=== PATIENT | female | born 1980 | race African-American/Black ===

== ENCOUNTER 2016-07-24 08:38 | Inpatient (IN) | payer MEDICAID ==
--- OUTSIDE RECORDS SUMMARY | 2016-07-24 08:42 | XMS REPORT | Continuity of Care Document ---
:1980 Author Organization [facility] ([facility]) Address [address] [place] [address] Phone [phone] Care Team Providers Name Role Phone Unavailable Primary Care Provider Unavailable Source Comments This disclosure is being made pursuant to the Care Everywhere program, applicable federal and state laws, and may not contain all informaitonavailable regarding this patient.[facility] ([facility]) Active Allergies and Adverse Reactions No Active Allergies Current Medications Not on file Active Problems Not on file Social History Tobacco Use Types Packs/Day Years Used Date Never Assessed Plan of Care Health Maintenance Due Date Last Done Comments Hepatitis B Vaccine (1 of 3 - Primary Series) 1982 Tdap Vaccine 1993 Lipid Disorder Screening 2000 MMR Vaccine 2000 Td Vaccine 2000 Varicella Vaccine (1 of 2 - Adult - No Evidence of 2000 Immunity) Cervical Cancer Screening 2012 Influenza Vaccine: Seasonal (#1) 10/24/2015 Results from Last 3 Months Not on file
[2016-07-24] MEDS ORDERED: ONDANSETRON HCL/PF 2 MG/ML VIAL IV PRN (08:55)
[2016-07-24] MEDS ORDERED: PENICILLIN G POTASSIUM 5 MILLIONUNT in DEXTROSE 5 % IN WATER 100 ML IV ONE ×2 (08:55)
[2016-07-24] MEDS ORDERED: LIDOCAINE HCL 50 ML VIAL PERI PRN (08:55)
[2016-07-24] MEDS ORDERED: OXYTOCIN/DEXTROSE 5%-WATER 30 UNITS/500 ML BAG IV ONE (08:55)
[2016-07-24 09:29] LABS: Hematocrit 28.2 % (37.0-47.0); Hemoglobin 8.8 gm/dL (12.5-16.0); Mean Cell Volume 75.8 fl (78-100); Mean Corpuscular Hemoglobin 23.7 pg (27-31); Mean Corpuscular Hgb Conc 31.2 g/dl (32-36); Mean Platelet Volume 11.1 fl (6.0-9.5); Neutrophil # 8.4 K/mm3 (1.3-6.0); Neutrophil % 71.2 % (42-75.0); Platelet Count 241 K/mm3 (150-450); Red Blood Count 3.72 M/mm3 (4.2-5.4); Red Cell Distribution Width 16.3 % (11.5-14.0); White Blood Count 11.8 K/mm3 (4.0-10.5)
[2016-07-24] MEDS: RINGERS SOLUTION,LACTATED 1,000 ML IV PRN ×3 (09:35→20:00)
[2016-07-24 09:37] LABS: Cocaine Ur Negative (NEGATIVE); Urine Barbiturate Negative (NEGATIVE); Urine Benzodiazepines Negative (NEGATIVE); Urine Opiates Negative (NEGATIVE); Urine PCP Negative (NEGATIVE); Urine THC Negative (NEGATIVE)
--- NOTE | 2016-07-24 11:09 | PN ---
Subjective - Date and Time Seen Date: 07/24/16 Subjective Narrative: Labor note 36 yo, at 38.1 weeks, induced for worsening psychiatric symptoms. GBS positive on PCN. Cervix: 2 cm, 90%, -3, soft and posterior. pitocin started for induction, currently at 6 mu/min Attempted to place a Alarcon bulb to aid with pitocin induction. Alarcon was unable to pass the cervix all the way up and was removed. FHR: reasuring. Conger: irregular contractions. Plan: will increase pitocin as tolerated. psych consult placed. may have epidural if desired. Luly Le MD Objective - Vitals Vitals: Last Vital Signs Temp 36.4 C L 08/31/13 12:10 Pulse Resp BP 113/62 08/31/13 12:10 Pulse Ox - Abnormal Lab Findings Abnormal Lab Findings: Abnormal Lab Results 07/24/16 Range/Units 09:19 WBC 11.8 H (4.0-10.5) K/mm3 RBC 3.72 L (4.2-5.4) M/mm3 Hgb 8.8 L (12.5-16.0) gm/dL Hct 28.2 L (37.0-47.0) % MCV 75.8 L (78-100) fl MCH 23.7 L (27-31) pg MCHC 31.2 L (32-36) g/dl RDW 16.3 H (11.5-14.0) % MPV 11.1 H (6.0-9.5) fl Immature Gran % (Auto) 1.80 H (0.001-0.429) % Immature Gran # (Auto) 0.21 H (0.000-0.0310) K/mm3 Lymphocytes % 15.5 L (20-51) % Monocytes % 10.7 H (0.0-9) % Neutrophils # 8.4 H (1.3-6.0) K/mm3 Monocytes # 1.3 H (0.0-1.0) k/mm3
[2016-07-24] MEDS: PENICILLIN G POTASSIUM 2.5 MILLIONUNT in DEXTROSE 5 % IN WATER 100 ML IV SCH ×6 (13:18→20:59)
[2016-07-24] MEDS ORDERED: BUPIVACAINE HCL/0.9 % NACL/PF 250 ML EP PRN (19:32)
--- NOTE | 2016-07-24 19:36 | OR ---
Anesthesia Pre Procedure Eval Date of Service: 07/24/16 Pre Procedure Evaluation: Last Vital Signs Temp 36.4 C L 08/31/13 12:10 Pulse Resp BP 113/62 08/31/13 12:10 Pulse Ox Anesthesia Pre Procedure Evaluation Heart Rate:68 Blood Pressure:117/69 Termperature:36.9 Respiratory Rate:18 SaO2:99 DATE: 07/24/2016 TIME: 1830 INDICATIONS: Active labor, labor pain PAST MEDICAL HISTORY: Altered per patient in active labor requesting labor analgesia. She is currently a 3-4 cm dilatation. EXAM: Heart regular; lungs clear ASSESSMENT OF MEDICAL STATUS: Appropriate candidate for labor analgesia PLANNED PROCEDURE: Combination spinal epidural for labor analgesia Home Medications: HOME MEDICATIONS Ferrous Sulfate [Iron] 325 mg PO DAILY 08/31/13 [Last Taken 07/23/16 09:00] Vit#96/Ferrous Fum/FA [ S] 1 tab PO DAILY #0 tablet 08/31/13 [ Last Taken 07/23/16 09:00] Haloperidol [Haldol] 5 mg PO TID 07/24/16 [Last Taken 07/22/16 21:00] OLANZapine [Zyprexa] 5 mg PO HS 07/24/16 [Last Taken 07/23/16 21:00]
[2016-07-24] MEDS ORDERED: fentaNYL CITRATE/PF 50 MCG/ML AMPUL IT SCH (19:45)
--- NOTE | 2016-07-24 19:54 | OR ---
Anesthesia Procedure Note - Anesthesia Procedure Note Date of Service: 07/24/16 Narrative: Vital Signs - Last Taken Temp 36.4 C L 08/31/13 12:10 Pulse Resp BP 113/62 08/31/13 12:10 Pulse Ox 07/24/16 19:52 ANESTHESIA PROCEDURE NOTE Date of Procedure: 07/24/2016 Time of procedure: 1830. Performed by: CLARITZA Delgado CRNA, MSN Customer Services Supervisor: Nanci Peter. Preprocedure diagnosis: Active labor, labor pain. Post procedure diagnosis: Same. Procedure: Labor Epidural Placement L3 4. Indications: Labor pain. Findings: See below. Details of the procedure: The patient was placed on the side of the bed in sitting position. The patient was prepped with DuraPrep and draped in a sterile fashion. Lidocaine 1% was infiltrated to the skin and subcutaneous tissues at the level of the L3 4 interspace. The epidural space was identified using a 18-gauge Tuohy needle with [id number] technique. Fentanyl 20 g was given intrathecally the intrathecal needle was then removed and the epidural catheter was threaded approximately 4 cm, the epidural needle was then removed, and after careful aspiration 3 mL of 1.5% lidocaine with 1-200,000 epinephrine was injected without change in maternal heart rate or sensorium. The catheter was then taped in place. EBL: Minimal. Fluids: N/A. Specimen: N/A. Post procedure condition: The patient tolerated the procedure well with good relief. No complications were noted. Thank you for this consultation. Wai Mcadams CRNA, [employer] ENGRAVER HAND, MSN
--- NOTE | 2016-07-24 22:10 | OR ---
Operative Report - Dictated Report Narrative: Spontaneous Vaginal Delivery Note: 36 yo, at 38.1 weeks, induced for worsening psychiatric symptoms. Cervix was dilated to 2 cm at admission. GBS was positive on PCN. Pitocin started for induction. Received epidural at 7:50 pm. Progressed to complete with a bulging bag of water without complications. The perineum was cleaned with betadine. AROM performed prior to delivery with clear fluid. Pushed with contractions and descent. Head delivered in OA over the perineum. Tight nuchal cord x 1 noted, but unable to reduce and was delivered through. The anterior shoulder delivered, followed by the posterior shoulder and the rest of the baby without difficulty. Baby cried at perineum. Mouth and nose were bulb-suctioned. Cord was clamped and cut. Baby placed on maternal abdomen for drying and care by the nursing. Cord blood was obtained. Placenta delivered intact with 3 vessel cord. Pitocin drip started after placenta delivered. Exam of the perineum, vaginal and cervix revealed an intact perineum without laceration. Fundus was massaged and firm. Bleeding was minimal. Mother and baby tolerated the delivery well. EBL 150 ml. : male, 3282 grams, 7 lbs and 3.7 oz. 9/10. Time of delivery: 21:45. Luly Le MD History for Definition: * The number of deliveries resulting in a live the patient experienced prior to current hospitalization * The previous delivery of live twins or any live multiple gestation is considered one live event. *If primagravida or nulliparous is documented select zero for the number of previous live births. Live Events: 2
[2016-07-24] MEDS ORDERED: GLYCERIN/WITCH HAZEL LEAF 40 APPL BOX TP PRN (22:19)
[2016-07-24] MEDS ORDERED: SENNOSIDES 8.6 MG TABLET PO PRN (22:19)
[2016-07-24] MEDS ORDERED: BISACODYL 10 MG SUPP.RECT RC PRN (22:19)
[2016-07-24] MEDS ORDERED: diphenhydrAMINE HCL 25 MG CAPSULE PO PRN (22:19)
[2016-07-24] MEDS ORDERED: HYDROcodone/ACETAMINOPHEN 1 EACH TABLET PO PRN (22:19)
[2016-07-24] MEDS ORDERED: HYDROCORTISONE 30 APPL TUBE TP PRN (22:19)
[2016-07-24] MEDS ORDERED: BENZOCAINE/MENTHOL 81 SPRAY CAN TP PRN (22:19)
[2016-07-25] MEDS ORDERED: MISOPROSTOL 200 MCG TABLET RC ONE (01:00)
[2016-07-25 07:43] LABS: Hematocrit 29.4 % (37.0-47.0); Hemoglobin 9.2 gm/dL (12.5-16.0); Mean Cell Volume 75.2 fl (78-100); Mean Corpuscular Hemoglobin 23.5 pg (27-31); Mean Corpuscular Hgb Conc 31.3 g/dl (32-36); Mean Platelet Volume 10.8 fl (6.0-9.5); Platelet Count 197 K/mm3 (150-450); Red Blood Count 3.91 M/mm3 (4.2-5.4); Red Cell Distribution Width 16.4 % (11.5-14.0); White Blood Count 15.7 K/mm3 (4.0-10.5)
[2016-07-25 07:45] LABS: Total Cells Counted 100
[2016-07-25] MEDS: DOCUSATE SODIUM 100 MG CAPSULE PO SCH ×2 (08:17→20:16)
[2016-07-25 08:21] LABS: Band 1 % (0-2.0); Lymphocyte 10 % (20-51); Monocyte 9 % (0-9); Neutrophil 80 % (42-75); Neutrophil # 12.6 K/mm3 (1.3-6.0)
[2016-07-25 08:23] LABS: Anisocytosis 2+; Hypochromia 1+; Platelet Estimate Normal (NORMAL); Poikilocytosis 1+
[2016-07-25] MEDS: IBUPROFEN 800 MG TABLET PO PRN ×2 (09:33→23:09)
--- NOTE | 2016-07-25 11:41 | CONS ---
[facility] - General Date of Service: 07/25/16 Source: patient, RN/MD, RN notes reviewed Exam Limitations: no limitations - History of Present Illness Initial Comments: Patient has been seen in outpatient psychiatry twice in June 2016 for exacerbation of schizoaffective disorder. Had stopped all psychotropic medications due to but at time of initial visit, symptoms had worsened and it was determined that starting psychotropic medication was in the best interest of the patient. Zyprexa was ordered but patient had stopped taking due to inefficacy. At 2nd visit, low dose of Haloperidol with Benztropine ordered to be taken TID as needed. This is the medication she was stable on before but at a drastically decreased dose. This low of a dose was not effective in allievating her symptoms. Her labor was induced due to the deterioration of her mental state. Timing/Duration: changing over time Modifying Factors - (Improves): Reports: medication Associated Symptoms: other - Irritability, mood swings, anger, visual and auditory hallucinations, suicidal and homicidal ideations. Allergies/Adverse Reactions: Allergies No Known Allergies Allergy (Unverified 07/24/16 08:53) Home Medications: Home Medications Medication Instructions Recorded Last Taken Ferrous Sulfate [Iron] 325 mg PO DAILY 08/31/13 07/23/16 09:00 Haloperidol [Haldol] 5 mg PO TID 07/24/16 07/22/16 21:00 OLANZapine [Zyprexa] 5 mg PO HS 07/24/16 07/23/16 21:00 - Patient's Past Medical History Patient History - Medical: Other - Schizoaffective disorder - Social History Psych History: Psychiatric Hx, Hx of Schizophrenia, Hx of Psychiatric Tx, Current tx/ever been on anti-depressants or anti-anxiety meds Alcohol Use: none - Patient has a scheduled follow up appointment on August 09 in outpatient psychiatry clinic. Drug Use: none Medications - Medications Current Medications: Current Medications Haloperidol 10 mg by oral route three times a day Benztropine 1 mg by oral route three times a day Review of Systems - Review of Systems Neurological: Present: Emotional Problems Physical Examination - Exam Narrative: Patient seen this afternoon, delivered baby boy last evening. She states that irritability and mood are better. States that she would like to breast feed because it is better but she feels that it is more important to resume pre- psychotropic medications which are contraindicated for breast feeding. I agree with her that medications should be restarted and that it would be advisable to bottle feed due to these known contraindications. She is comfortable with this decision. Her mood is relaxed at this point in time. She states that she does still have racing thoughts and speech is rapid. She is alert and oriented x 3. She states that a woman who she considers her mother will be taking her daughter and son for at least 4 days following their discharge from hospital so she has a chance to become more stable with her medications. She has been trying to acosta with baby and voices hesitation to hold him while he is sleeping. Her thoughts are logical and goal oriented. Her insight and judgment are good. I feel that once her symptoms are controlled with the proper medications, anger and irritability will subside. She denies any current suicidal or homicidal ideation. I recommend that security placement outside her room be discontinued at this time but nurse to remain in room when patient has baby. Patient and I discussed pre- medications which were prescribed by another psychiatrist. She states that she has enough medication from her old prescriptions to last until her appointment with me on August 09. Will start on Haloperidol 10 mg TID with Benztropine 1 mg TID while admitted, then is to increase to pre- doses when she gets home. Patient voices understanding. Vital Signs: Vital Signs - Last Taken Temp 37.5 C 07/25/16 08:20 Pulse 80 07/25/16 08:20 Resp 16 07/25/16 08:20 BP 108/65 07/25/16 08:20 Pulse Ox 98 07/25/16 08:20 O2 Oxygen Delivery Method Room Air Thoughts: Present: no apparent hallucination - Results and Findings: Lab/Microbiology results last 24 hrs: Abnormal/Pending Laboratory Last 24 HRS 07/25/16 07:35 WBC 15.7 H D RBC 3.91 L Hgb 9.2 L Hct 29.4 L MCV 75.2 L MCH 23.5 L MCHC 31.3 L RDW 16.4 H MPV 10.8 H Neutrophils % (Manual) 80 H Lymphocytes % (Manual) 10 L Neutrophils # (Manual) 12.6 H Monocytes # (Manual) 1.4 H - Assessments/Findings (1) Schizophrenia Problem: Acute
[2016-07-25] MEDS: HALOPERIDOL 5 MG TABLET PO SCH ×2 (13:44→22:14)
[2016-07-25] MEDS: BENZTROPINE MESYLATE 0.5 MG TABLET PO SCH ×2 (13:44→22:13)
--- NOTE | 2016-07-25 19:39 | PN ---
Subjective - Date and Time Seen Date: 07/25/16 Subjective Narrative: day 1, s/p doing well. mood stable. seen by psychologist [employer] Grecia Berry. per psych consult recommendations: security outside her room be removed. if baby is in the room, nurse should always accompanies the baby. restarted on her psych meds benztropine and haloperidol. bottle feeding now. normal lochia. Objective - Vitals Vitals: Last Vital Signs Temp 36.9 C 07/25/16 18:55 Pulse 71 07/25/16 18:55 Resp 18 07/25/16 18:55 BP 102/58 07/25/16 18:55 Pulse Ox 96 07/25/16 18:55 - Abnormal Lab Findings Abnormal Lab Findings: Abnormal Lab Results 07/25/16 Range/Units 07:35 WBC 15.7 H D (4.0-10.5) K/mm3 RBC 3.91 L (4.2-5.4) M/mm3 Hgb 9.2 L (12.5-16.0) gm/dL Hct 29.4 L (37.0-47.0) % MCV 75.2 L (78-100) fl MCH 23.5 L (27-31) pg MCHC 31.3 L (32-36) g/dl RDW 16.4 H (11.5-14.0) % MPV 10.8 H (6.0-9.5) fl Neutrophils % (Manual) 80 H (42-75) % Lymphocytes % (Manual) 10 L (20-51) % Neutrophils # (Manual) 12.6 H (1.3-6.0) K/mm3 Monocytes # (Manual) 1.4 H (0.0-1.0) k/mm3 - Exam Constitutional: Present: Alert, Oriented x3, Cooperative Respiratory: Present: no respiratory distress Cardiovascular/Chest: Present: normal peripheral pulses Abdomen: Present: soft, nontender, nondistended, other - fundus firm Extremity: Present: normal range of motion, no pedal edema, no calf tenderness Skin Exam: Present: normal color, warm/dry, no cyanosis Neurologic: Present: normal mood/affect Eye contact: Present: cooperative, good eye contact, normal speech Assessment/Plan Plan Narrative: A: PPD#1, s/p stable. Plan: routine care. psych consult done. restarted on her psych meds. mood stable. expect going home tomorrow. Luly Le MD
[2016-07-26] MEDS: IBUPROFEN 800 MG TABLET PO PRN (08:43)
[2016-07-26] MEDS: BENZTROPINE MESYLATE 0.5 MG TABLET PO SCH ×3 (09:14→21:17)
[2016-07-26] MEDS: HALOPERIDOL 5 MG TABLET PO SCH ×3 (09:14→21:17)
[2016-07-26] MEDS: DOCUSATE SODIUM 100 MG CAPSULE PO SCH ×2 (09:14→21:17)
--- NOTE | 2016-07-26 16:49 | PN ---
Subjective - Date and Time Seen Date: 07/26/16 Time: 16:30 Subjective Narrative: Patient states that she is feeling much better after restarting Haloperidol and Benztropine. States that mood is good. Racing thoughts and irritability have subsided. Slept well last night. Denies any side effects. Objective Objective Narrative: Follow up psychiatry visit per Dr. Le. Patient is doing much better, has had 4 doses of Haloperidol and Benztropine. RN reports good interaction with today, fully participating in his cares. She has not made any threats towards herself or others' safety. She states that her mood is much more stable. States that baby will not be discharged due to continued health concerns and although she will be discharged, she will be staying in unit as a boarder to care for her baby until he is discharged. Has a good support system set up upon discharge. Patient states that she has bottles of Haloperidol and Benztropine that were locked up when she was admitted and will continue to take Haloperidol 10 mg TID and Benztropine 1 mg TID using her personal medications. After speaking with patient and nursing staff, I have no concerns about her being left alone with her baby for the duration of her stay. It is no longer necessary to have staff present when she is alone with her baby. Nurse is aware of this recommendation. Has follow up appointment scheduled in outpatient psychiatry clinic. - Review of Systems Generalized/Overall Review: Reports: No Symptoms Reported Neurological: Reports: No Symptoms Reported, Emotional Problems - Vitals Vitals: Last Vital Signs Temp 36.6 C 07/26/16 09:00 Pulse 85 07/26/16 09:00 Resp 18 07/26/16 09:00 BP 96/56 07/26/16 09:00 Pulse Ox 98 07/26/16 09:00 - Exam Neurologic: Present: normal mood/affect, oriented x 3 Appearance: Present: appropriate appearance, appropriate insight, neat Eye contact: Present: cooperative, good eye contact, normal speech Thoughts: Present: normal thought pattern, normal mood /affect, other - Denies any hallucinations or delusions. Racing thoughts have slowed. Irritability is greatly improved. Assessment/Plan - Problems/Diagnosis (1) Schizophrenia Problem: Acute Qualifiers: Schizophrenia type: other Qualified Code(s): F20.89 - Other schizophrenia; F20.8 - Other schizophrenia
--- NOTE | 2016-07-26 17:52 | PN ---
Subjective - Date and Time Seen Date: 07/26/16 Subjective Narrative: day 2, s/p doing well. mood good. seen by psychiatric clinician Grecia. Cleared to be discharged home. Bottle feeding. Normal lochia Objective - Vitals Vitals: Last Vital Signs Temp 36.6 C 07/26/16 09:00 Pulse 85 07/26/16 09:00 Resp 18 07/26/16 09:00 BP 96/56 07/26/16 09:00 Pulse Ox 98 07/26/16 09:00 - Exam Constitutional: Present: Alert, Oriented x3, Cooperative Respiratory: Present: no respiratory distress Cardiovascular/Chest: Present: normal peripheral pulses Abdomen: Present: soft, nontender, nondistended, other - fundus firm Extremity: Present: normal range of motion, no pedal edema, no calf tenderness Skin Exam: Present: normal color, warm/dry, no cyanosis Eye contact: Present: cooperative, good eye contact, normal speech Assessment/Plan Plan Narrative: A: PPD#2, s/p stable and well. Plan: will discharge home today. Luly Le MD
[2016-07-26 20:23] VITALS: BP 122/76
== END 2016-07-26 22:10 | disposition home or self-care (01) | DRG 775 ==
LOC: OB 08:38
PROVIDERS: ADMIT Obstetrics & Gynecology; ATTEND Obstetrics & Gynecology
PROC: 10E0XZZ Delivery of Products of Conception, External Approach (ICD-10-PCS; principal; 2016-07-24)
PROC: 4A1HXCZ Monitoring of Products of Conception, Cardiac Rate, External Approach (ICD-10-PCS; 2016-07-24)
PROC: 10907ZC Drainage of Amniotic Fluid, Therapeutic from Products of Conception, Via Natural or Artificial Opening (ICD-10-PCS; 2016-07-24)
PROC: 3E0S3CZ (ICD-10-PCS; 2016-07-24)
DX: O99.344 Other mental disorders complicating childbirth (principal); F20.89 Other schizophrenia; O99.824 Streptococcus B carrier state complicating childbirth; O69.1XX0 Labor and delivery complicated by cord around neck, with compression, not applicable or unspecified; F31.9 Bipolar disorder, unspecified; Z3A.38 38 weeks gestation of pregnancy; Z37.0 Single live birth